=== PATIENT | male | born 1960 | race Caucasian/White ===

== ENCOUNTER → 2016-02-26 | Outpatient (CLI) | payer BC ==
[~2016-02-26] MED LIST: /PANT40TA OR; /SUCR1TA OR; ATEN50TA2 PO; CEFT250T OR; CELE20TA PO; CETI10TA OR; FERR325T OR; KLOR10TA OR; LASI80TA PO; NORV5TAB PO; POTA20TA PO; PRADAXA PO; TRAZ150T OR; VICO5TAB PO; ZANA2CAP OR
[2016-02-26 17:02] LABS: INR 2.33
== END ==
LOC: M WUC 14:33
PROVIDERS: ATTEND Nurse Practitioner Family
DX: I48.91 Unspecified atrial fibrillation (principal)

== ENCOUNTER → 2016-04-05 | Outpatient (CLI) | payer BC ==
[2016-04-05 16:50] LABS: INR 1.97
== END ==
LOC: M WUC 14:31
PROVIDERS: ATTEND Nurse Practitioner Family
DX: I48.91 Unspecified atrial fibrillation (principal)

== ENCOUNTER → 2016-04-16 | Outpatient (CLI) | payer BC ==
[2016-04-16 18:27] LABS: INR 2.66
== END ==
LOC: M WUC 14:25
PROVIDERS: ATTEND Nurse Practitioner Family
DX: I48.91 Unspecified atrial fibrillation (principal)

== ENCOUNTER → 2016-05-04 | Outpatient (CLI) | payer BC ==
[2016-05-04 18:06] LABS: INR 2.65
[2016-05-04 18:45] LABS: ALBUMIN 4.1 GM/DL (3.2-5.2); ALBUMIN/GLOBULIN RATIO 1.41 (1.00-1.93); ALKALINE PHOSPHATASE 98 U/L (45-117); ALT/SGPT 74 U/L (12-78); ANION GAP 9 MEQ/L (8-16); AST/SGOT 41 U/L (15-37); BILIRUBIN,TOTAL 0.5 MG/DL (0.2-1.0); BLOOD UREA NITROGEN 26 MG/DL (7-18); CALCIUM LEVEL 8.4 MG/DL (8.5-10.1); CARBON DIOXIDE LEVEL 28 MEQ/L (21-32); CHLORIDE LEVEL 103 MEQ/L (98-107); CHOLESTEROL LEVEL 167 MG/DL (<200); CREATININE FOR GFR 0.84 MG/DL (0.70-1.30); GLOMERULAR FILTRATION RATE > 60.0 (>56); GLUCOSE, FASTING 97 MG/DL (70-105); POTASSIUM SERUM 4.4 MEQ/L (3.5-5.1); SODIUM LEVEL 140 MEQ/L (136-145); TRIGLYCERIDES LEVEL 62 MG/DL (<150)
[2016-05-04 18:56] LABS: MEAN CORPUSCULAR HEMOGLOBIN 32.9 pg (27.0-33.0); MEAN CORPUSCULAR HGB CONC 33.3 g/dl (32.0-36.5); RED CELL DISTRIBUTION WIDTH 13.3 % (11.5-14.5); WHITE BLOOD COUNT 8.5 K/mm3 (4.0-10.0)
== END ==
LOC: M WUC 14:27
PROVIDERS: ATTEND Nurse Practitioner Family
DX: Z12.5 Encounter for screening for malignant neoplasm of prostate (principal); I48.91 Unspecified atrial fibrillation; E78.4 Other hyperlipidemia; I10 Essential (primary) hypertension; E11.9 Type 2 diabetes mellitus without complications

== ENCOUNTER → 2016-07-13 | Outpatient (CLI) | payer BC ==
[2016-07-13 17:15] LABS: INR 2.9
== END ==
LOC: M WUC 14:30
PROVIDERS: ATTEND Nurse Practitioner Family
DX: I48.91 Unspecified atrial fibrillation (principal)

== ENCOUNTER → 2016-08-19 | Outpatient (CLI) | payer BC ==
[2016-08-19 19:38] LABS: INR 2.14
== END ==
LOC: M WUC 15:18
PROVIDERS: ATTEND Nurse Practitioner Family
DX: Z79.01 Long term (current) use of anticoagulants (principal); I48.91 Unspecified atrial fibrillation

== ENCOUNTER → 2016-09-10 | Outpatient (CLI) | payer BC ==
[2016-09-10 17:55] LABS: INR 2.33
== END ==
LOC: M WUC 14:11
PROVIDERS: ATTEND Nurse Practitioner Family
DX: I48.91 Unspecified atrial fibrillation (principal)

== ENCOUNTER → 2016-10-21 | Outpatient (CLI) | payer BC ==
[2016-10-21 19:35] LABS: INR 2.07
== END ==
LOC: M WUC 15:34
PROVIDERS: ATTEND Nurse Practitioner Family
DX: I48.91 Unspecified atrial fibrillation (principal)

== ENCOUNTER → 2016-12-23 | Outpatient (CLI) | payer BC ==
[2016-12-23 17:33] LABS: INR 2.17
== END ==
LOC: M WUC 13:37
PROVIDERS: ATTEND Nurse Practitioner Family
DX: I48.91 Unspecified atrial fibrillation (principal)

== ENCOUNTER → 2017-01-27 | Outpatient (CLI) | payer BC ==
[2017-01-27 16:41] LABS: INR 2.07
== END ==
LOC: M WUC 14:24
PROVIDERS: ATTEND Nurse Practitioner Family
DX: I48.91 Unspecified atrial fibrillation (principal)

== ENCOUNTER → 2017-03-10 | Outpatient (CLI) | payer BC ==
[2017-03-10 19:01] LABS: HEMATOCRIT 47.2 % (42.0-52.0); HEMOGLOBIN 15.8 g/dl (14.0-18.0); MEAN CORPUSCULAR HEMOGLOBIN 31.8 pg (27.0-33.0); MEAN CORPUSCULAR HGB CONC 33.5 g/dl (32.0-36.5); PLATELET COUNT, AUTOMATED 315 10^3/uL (150-450); RED BLOOD COUNT 4.97 10^6/uL (4.30-6.10); RED CELL DISTRIBUTION WIDTH 13.5 % (11.5-14.5); WHITE BLOOD COUNT 9.9 10^3/uL (4.0-10.0)
[2017-03-10 19:03] LABS: APPEARANCE, URINE CLEAR (CLEAR); BACTERIA, URINE AUTO NEGATIVE (NEGATIVE); BILIRUBIN, URINE AUTO NEGATIVE (NEGATIVE); BLOOD, URINE BLOOD NEGATIVE (NEGATIVE); COLOR, URINE YELLOW (YELLOW); GLUCOSE, URINE (UA) AUTO NEGATIVE (NEGATIVE); KETONE, URINE AUTO TRACE mg/dL (NEGATIVE); LEUKOCYTE ESTERASE, URINE AUTO NEGATIVE (NEGATIVE); NITRITE, URINE AUTO NEGATIVE (NEGATIVE); PROTEIN, URINE AUTO NEGATIVE (NEGATIVE); RBC, URINE AUTO 1 /HPF (0-3); SQUAMOUS EPITHELIAL CELL UR AU 0 /HPF (0-6); UROBILINOGEN, URINE AUTO 0.2 mg/dL (0.0-2.0); WBC, URINE AUTO 0 /HPF (0-3)
[2017-03-10 19:11] LABS: INR 1.86
[2017-03-10 20:00] LABS: MALB URINE SIEMENS 8.1 MG/L; MAU/CREAT RATIO 4.4 MCG/MG (0.0-30.0)
[2017-03-10 20:20] LABS: ALBUMIN 4.1 GM/DL (3.2-5.2); ALBUMIN/GLOBULIN RATIO 1.32 (1.00-1.93); ALKALINE PHOSPHATASE 75 U/L (45-117); ALT/SGPT 61 U/L (12-78); ANION GAP 7 MEQ/L (8-16); AST/SGOT 28 U/L (7-37); BILIRUBIN,TOTAL 0.5 MG/DL (0.2-1.0); BLOOD UREA NITROGEN 29 MG/DL (7-18); CARBON DIOXIDE LEVEL 27 MEQ/L (21-32); CHLORIDE LEVEL 104 MEQ/L (98-107); CHOLESTEROL LEVEL 193 MG/DL (<200); CHOLESTEROL RISK RATIO 3.216 (<5); CREATININE FOR GFR 0.97 MG/DL (0.70-1.30); GLOMERULAR FILTRATION RATE > 60.0 (>56); GLUCOSE, FASTING 93 MG/DL (70-100); HDL CHOLESTEROL 60 MG/DL (>40); LDL CHOLESTEROL 118.2 MG/DL (<100); NON-HDL-C 133 MG/DL; POTASSIUM SERUM 4.3 MEQ/L (3.5-5.1); PROSTATIC SPECIFIC AG MONITOR 1.57 NG/ML (< 4.0); SODIUM LEVEL 138 MEQ/L (136-145); TOTAL PROTEIN 7.2 GM/DL (6.4-8.2); TRIGLYCERIDES LEVEL 74 MG/DL (<150)
== END ==
LOC: M WUC 14:56
DX: Z00.00 Encounter for general adult medical examination without abnormal findings (principal); Z12.5 Encounter for screening for malignant neoplasm of prostate; E78.2 Mixed hyperlipidemia; E11.9 Type 2 diabetes mellitus without complications; I10 Essential (primary) hypertension; I48.91 Unspecified atrial fibrillation
CPT/HCPCS: 80053

== ENCOUNTER → 2017-03-17 | Outpatient (CLI) | payer BC ==
[2017-03-17 19:08] LABS: INR 2.17
== END ==
LOC: M WUC 14:00
DX: I48.91 Unspecified atrial fibrillation (principal)
CPT/HCPCS: 85610

== ENCOUNTER → 2017-04-28 | Outpatient (CLI) | payer BC ==
[2017-04-28 17:01] LABS: INR 1.96
== END ==
LOC: M WUC 14:21
DX: I48.91 Unspecified atrial fibrillation (principal)
CPT/HCPCS: 85610

== ENCOUNTER → 2017-05-05 | Outpatient (CLI) | payer BC ==
[2017-05-05 17:01] LABS: INR 2.18
== END ==
LOC: M WUC 14:21
DX: I48.91 Unspecified atrial fibrillation (principal)
CPT/HCPCS: 85610

== ENCOUNTER → 2017-06-14 | Outpatient (CLI) | payer BC ==
[2017-06-14 16:43] LABS: INR 2.09; PROTHROMBIN TIME 24.2 SECONDS (12.4-14.5)
== END ==
LOC: M WUC 14:50
DX: I48.91 Unspecified atrial fibrillation (principal)
CPT/HCPCS: 85610

== ENCOUNTER → 2017-07-21 | Outpatient (CLI) | payer BC ==
[2017-07-21 16:53] LABS: INR 1.84; PROTHROMBIN TIME 21.8 SECONDS (12.4-14.5)
== END ==
LOC: M WUC 14:57
DX: Z79.01 Long term (current) use of anticoagulants (principal); I48.91 Unspecified atrial fibrillation
CPT/HCPCS: 85610

== ENCOUNTER → 2017-08-02 | Outpatient (CLI) | payer BC ==
[2017-08-02 18:35] LABS: INR 2.22; PROTHROMBIN TIME 25.4 SECONDS (12.4-14.5)
== END ==
LOC: M WUC 14:38
DX: I48.91 Unspecified atrial fibrillation (principal)
CPT/HCPCS: 85610

== ENCOUNTER → 2017-08-09 | Outpatient (CLI) | payer BC ==
[2017-08-09 16:51] LABS: INR 2.38; PROTHROMBIN TIME 26.5 SECONDS (12.1-14.4)
== END ==
LOC: M WUC 14:57
DX: I48.91 Unspecified atrial fibrillation (principal); Z51.81 Encounter for therapeutic drug level monitoring; Z79.01 Long term (current) use of anticoagulants
CPT/HCPCS: 85610

== ENCOUNTER → 2017-09-16 | Outpatient (CLI) | payer BC ==
[2017-09-16 16:49] LABS: INR 1.87; PROTHROMBIN TIME 21.9 SECONDS (12.1-14.4)
== END ==
LOC: M WUC 14:25
DX: I48.91 Unspecified atrial fibrillation (principal)
CPT/HCPCS: 85610

== ENCOUNTER → 2017-10-24 | Outpatient (CLI) | payer BC ==
[2017-10-24 17:24] LABS: INR 1.88; PROTHROMBIN TIME 21.9 SECONDS (12.1-14.4)
== END ==
LOC: M WUC 14:26
DX: I48.91 Unspecified atrial fibrillation (principal)
CPT/HCPCS: 85610

== ENCOUNTER → 2017-10-31 | Outpatient (CLI) | payer BC ==
[2017-10-31 18:47] LABS: INR 1.88; PROTHROMBIN TIME 21.9 SECONDS (12.1-14.4)
== END ==
LOC: M WUC 14:42
DX: I48.91 Unspecified atrial fibrillation (principal)
CPT/HCPCS: 85610

== ENCOUNTER → 2017-11-07 | Outpatient (CLI) | payer BC ==
[2017-11-07 17:39] LABS: INR 1.97; PROTHROMBIN TIME 22.8 SECONDS (12.1-14.4)
== END ==
LOC: M WUC 14:04
DX: I48.91 Unspecified atrial fibrillation (principal)

== ENCOUNTER → 2017-11-14 | Outpatient (CLI) | payer BC ==
[2017-11-14 18:47] LABS: INR 2.13; PROTHROMBIN TIME 24.2 SECONDS (12.1-14.4)
== END ==
LOC: M WUC 13:53
DX: I48.91 Unspecified atrial fibrillation (principal)
CPT/HCPCS: 85610

== ENCOUNTER → 2017-11-22 | Outpatient (CLI) | payer BC ==
[2017-11-22 15:20] LABS: INR 2.71; PROTHROMBIN TIME 29.3 SECONDS (12.1-14.4)
== END ==
LOC: M WUC 14:36
DX: I48.91 Unspecified atrial fibrillation (principal)
CPT/HCPCS: 85610

== ENCOUNTER → 2018-01-03 | Outpatient (CLI) | payer BC ==
[2018-01-03 17:20] LABS: INR 3.18; PROTHROMBIN TIME 33.3 SECONDS (12.1-14.4)
== END ==
LOC: M WUC 15:17
DX: I48.91 Unspecified atrial fibrillation (principal)
CPT/HCPCS: 85610

== ENCOUNTER → 2018-02-01 | Outpatient (CLI) | payer BC ==
[2018-02-01 14:32] LABS: HEMATOCRIT 45.1 % (42.0-52.0); HEMOGLOBIN 15.2 g/dl (13.5-17.5); MEAN CORPUSCULAR HEMOGLOBIN 32.5 pg (27.0-33.0); MEAN CORPUSCULAR HGB CONC 33.7 g/dl (32.0-36.5); MEAN CORPUSCULAR VOLUME 96.4 fl (80.0-96.0); PLATELET COUNT, AUTOMATED 236 10^3/uL (150-450); RED BLOOD COUNT 4.68 10^6/uL (4.30-6.10); WHITE BLOOD COUNT 9.2 10^3/uL (4.0-10.0)
[2018-02-01 14:43] LABS: ALBUMIN 3.7 GM/DL (3.2-5.2); ALT/SGPT 53 U/L (12-78); BILIRUBIN,TOTAL 0.3 MG/DL (0.2-1.0); BLOOD UREA NITROGEN 25 MG/DL (7-18); CALCIUM LEVEL 8.1 MG/DL (8.5-10.1); CARBON DIOXIDE LEVEL 30 MEQ/L (21-32); CHLORIDE LEVEL 105 MEQ/L (98-107); CHOLESTEROL LEVEL 172 MG/DL (<200); CHOLESTEROL RISK RATIO 3.017 (<5); CREATININE FOR GFR 0.94 MG/DL (0.70-1.30); GLOMERULAR FILTRATION RATE > 60.0 (>56); GLUCOSE, FASTING 102 MG/DL (70-100); HDL CHOLESTEROL 57 MG/DL (>40); LDL CHOLESTEROL 97 MG/DL (<100); NON-HDL-C 115 MG/DL; POTASSIUM SERUM 4.7 MEQ/L (3.5-5.1); PROSTATIC SPECIFIC AG MONITOR 1.64 NG/ML (< 4.00); SODIUM LEVEL 140 MEQ/L (136-145); TOTAL PROTEIN 6.6 GM/DL (6.4-8.2); TRIGLYCERIDES LEVEL 89 MG/DL (<150)
[2018-02-01 14:47] LABS: INR 2.37; PROTHROMBIN TIME 26.4 SECONDS (12.1-14.4)
== END ==
LOC: M WUC 11:15
PROVIDERS: ATTEND Nurse Practitioner Family
DX: I48.91 Unspecified atrial fibrillation (principal); E78.2 Mixed hyperlipidemia; Z12.5 Encounter for screening for malignant neoplasm of prostate; I10 Essential (primary) hypertension

== ENCOUNTER → 2018-05-05 | Outpatient (CLI) | payer BC ==
[2018-05-05 19:54] LABS: INR 3.13; PROTHROMBIN TIME 32.9 SECONDS (12.1-14.4)
== END ==
LOC: M WUC 15:58
PROVIDERS: ATTEND Nurse Practitioner Family
DX: I48.91 Unspecified atrial fibrillation (principal)

== ENCOUNTER → 2018-05-15 | Outpatient (CLI) | payer BC ==
[~2018-05-15] MED LIST changes: -/PANT40TA OR; -/SUCR1TA OR; +PROT1TAB2 OR; +SUCR1TAB56 OR
[2018-05-15 17:49] LABS: INR 2.64; PROTHROMBIN TIME 28.7 SECONDS (12.1-14.4)
== END ==
LOC: M WUC 14:10
PROVIDERS: ATTEND Nurse Practitioner Family
DX: I48.91 Unspecified atrial fibrillation (principal)

== ENCOUNTER 2018-05-24 14:22 | Outpatient (RCR) | payer BC | END 2018-06-06 | LOC: M CR 14:22 | PROVIDERS: ATTEND Nurse Practitioner Family | DX: I48.91 Unspecified atrial fibrillation (principal) ==

== ENCOUNTER → 2018-07-07 | Outpatient (CLI) | payer BC ==
[2018-07-07 17:05] LABS: INR 3.7; PROTHROMBIN TIME 37.6 SECONDS (12.1-14.4)
== END ==
LOC: M WUC 14:16
PROVIDERS: ATTEND Nurse Practitioner Family
DX: I48.91 Unspecified atrial fibrillation (principal)

== ENCOUNTER → 2018-07-11 | Outpatient (CLI) | payer BC ==
[2018-07-11 18:16] LABS: INR 4.18; PROTHROMBIN TIME 41.4 SECONDS (12.1-14.4)
== END ==
LOC: M WUC 14:06
PROVIDERS: ATTEND Nurse Practitioner Family
DX: I48.91 Unspecified atrial fibrillation (principal)

== ENCOUNTER → 2018-07-14 | Outpatient (CLI) | payer BC ==
[2018-07-14 17:32] LABS: INR 1.67
== END ==
LOC: M WUC 14:00
PROVIDERS: ATTEND Nurse Practitioner Family
DX: I48.91 Unspecified atrial fibrillation (principal)

== ENCOUNTER → 2018-07-21 | Outpatient (CLI) | payer BC ==
[2018-07-21 17:28] LABS: INR 3.15; PROTHROMBIN TIME 33.1 SECONDS (12.1-14.4)
== END ==
LOC: M WUC 14:07
PROVIDERS: ATTEND Nurse Practitioner Family
DX: I48.91 Unspecified atrial fibrillation (principal)

== ENCOUNTER → 2018-07-31 | Outpatient (CLI) | payer BC ==
[2018-07-31 18:09] LABS: PROTHROMBIN TIME 60.9 SECONDS (11.8-14.0)
[2018-07-31 18:12] LABS: INR 6.96
== END ==
LOC: M WUC 14:31
PROVIDERS: ATTEND Nurse Practitioner Family
DX: I48.91 Unspecified atrial fibrillation (principal)

== ENCOUNTER → 2018-08-02 | Outpatient (CLI) | payer BC ==
[2018-08-02 17:18] LABS: INR 2.2; PROTHROMBIN TIME 24.2 SECONDS (11.8-14.0)
== END ==
LOC: M WUC 14:03
PROVIDERS: ATTEND Nurse Practitioner Family
DX: I48.91 Unspecified atrial fibrillation (principal)

== ENCOUNTER → 2018-08-09 | Outpatient (CLI) | payer BC ==
[2018-08-09 17:24] LABS: INR 2.13; PROTHROMBIN TIME 23.6 SECONDS (11.8-14.0)
== END ==
LOC: M WUC 13:56
PROVIDERS: ATTEND Nurse Practitioner Family
DX: I48.91 Unspecified atrial fibrillation (principal)

== ENCOUNTER → 2018-09-04 | Outpatient (CLI) | payer BC ==
[2018-09-04 15:56] LABS: INR 2.59; PROTHROMBIN TIME 27.6 SECONDS (11.8-14.0)
== END ==
LOC: M WUC 14:06
PROVIDERS: ATTEND Nurse Practitioner Family
DX: I48.91 Unspecified atrial fibrillation (principal)

== ENCOUNTER 2018-10-04 13:50 | Outpatient (RCR) | payer BC | END 2018-10-07 | LOC: M CR 13:50 | PROVIDERS: ATTEND Nurse Practitioner Family | DX: I48.91 Unspecified atrial fibrillation (principal) ==

== ENCOUNTER → 2018-10-31 | Outpatient (CLI) | payer BC, MEDICARE ==
[2018-10-31 16:58] LABS: HEMATOCRIT 43.1 % (42.0-52.0); HEMOGLOBIN 14.5 g/dl (13.5-17.5); MEAN CORPUSCULAR HEMOGLOBIN 32.4 pg (27.0-33.0); MEAN CORPUSCULAR HGB CONC 33.6 g/dl (32.0-36.5); MEAN CORPUSCULAR VOLUME 96.4 fl (80.0-96.0); PLATELET COUNT, AUTOMATED 220 10^3/uL (150-450); RED BLOOD COUNT 4.47 10^6/uL (4.30-6.10); WHITE BLOOD COUNT 8.1 10^3/uL (4.0-10.0)
[2018-10-31 17:13] LABS: HEMOGLOBIN A1c 5.4 %
[2018-10-31 17:20] LABS: INR 2.39; PROTHROMBIN TIME 25.9 SECONDS (11.8-14.0)
[2018-10-31 17:38] LABS: ALT/SGPT 45 U/L (12-78); BILIRUBIN,TOTAL 0.6 MG/DL (0.2-1.0); BLOOD UREA NITROGEN 19 MG/DL (7-18); CALCIUM LEVEL 8.6 MG/DL (8.5-10.1); CARBON DIOXIDE LEVEL 29 MEQ/L (21-32); CHLORIDE LEVEL 103 MEQ/L (98-107); GLOMERULAR FILTRATION RATE > 60.0 (>56); GLUCOSE, FASTING 89 MG/DL (70-100); POTASSIUM SERUM 4.2 MEQ/L (3.5-5.1); SODIUM LEVEL 139 MEQ/L (136-145); TESTOSTERONE 307 NG/DL (241-827)
== END ==
LOC: M WUC 13:52
PROVIDERS: ATTEND Nurse Practitioner Family
DX: I48.91 Unspecified atrial fibrillation (principal); I10 Essential (primary) hypertension; E78.5 Hyperlipidemia, unspecified

== ENCOUNTER → 2019-01-24 | Outpatient (CLI) | payer BC, MEDICARE ==
[2019-01-24 16:59] LABS: INR 3.04; PROTHROMBIN TIME 31.4 SECONDS (11.8-14.0)
== END ==
LOC: M WUC 14:47
PROVIDERS: ATTEND Nurse Practitioner Family
DX: I48.91 Unspecified atrial fibrillation (principal)

== ENCOUNTER → 2019-02-28 | Outpatient (CLI) | payer BC ==
[2019-02-28 16:41] LABS: INR 3.47; PROTHROMBIN TIME 34.9 SECONDS (11.8-14.0)
== END ==
LOC: M WUC 14:49
PROVIDERS: ATTEND Nurse Practitioner Family
DX: I48.91 Unspecified atrial fibrillation (principal)

== ENCOUNTER → 2019-03-29 | Outpatient (CLI) | payer BC ==
[2019-03-29 16:38] LABS: INR 2.99
== END ==
LOC: M WUC 14:02
PROVIDERS: ATTEND Nurse Practitioner Family
DX: I48.91 Unspecified atrial fibrillation (principal)

== ENCOUNTER → 2019-05-03 | Outpatient (CLI) | payer BC ==
[2019-05-03 16:48] LABS: INR 2.77; PROTHROMBIN TIME 29.2 SECONDS (11.8-14.0)
== END ==
LOC: M WUC 15:08
PROVIDERS: ATTEND Nurse Practitioner Family
DX: I48.91 Unspecified atrial fibrillation (principal)

== ENCOUNTER → 2019-06-06 | Outpatient (CLI) | payer BC ==
[2019-06-06 16:53] LABS: INR 2.92; PROTHROMBIN TIME 30.4 SECONDS (11.8-14.0)
== END ==
LOC: M WUC 14:28
PROVIDERS: ATTEND Nurse Practitioner Family
DX: I48.91 Unspecified atrial fibrillation (principal)

== ENCOUNTER → 2019-07-10 | Outpatient (CLI) | payer BC ==
[2019-07-10 17:30] LABS: INR 3.14; PROTHROMBIN TIME 32.2 SECONDS (11.8-14.0)
== END ==
LOC: M WUC 14:11
PROVIDERS: ATTEND Nurse Practitioner Family
DX: I48.91 Unspecified atrial fibrillation (principal)

== ENCOUNTER → 2019-08-16 | Outpatient (CLI) | payer BC ==
[2019-08-16 16:11] LABS: INR 2.24; PROTHROMBIN TIME 24.6 SECONDS (11.8-14.0)
== END ==
LOC: M WUC 14:09
PROVIDERS: ATTEND Nurse Practitioner Family
DX: I48.91 Unspecified atrial fibrillation (principal)

== ENCOUNTER → 2019-09-20 | Outpatient (REF) ==
[2019-10-28 00:26] LABS: INR 3.4; PROTHROMBIN TIME 35.1 SECONDS (12.5-14.3)
== END ==
LOC: M LAB LCGH 14:21
PROVIDERS: ATTEND Nurse Practitioner Family
DX: I48.91 Unspecified atrial fibrillation (principal)

== ENCOUNTER → 2019-10-04 | Outpatient (CLI) | payer BC ==
[2019-10-04 18:06] LABS: INR 2.4; PROTHROMBIN TIME 26.7 SECONDS (11.8-14.0)
== END ==
LOC: M WUC 14:29
PROVIDERS: ATTEND Nurse Practitioner Family
DX: I48.91 Unspecified atrial fibrillation (principal)

== ENCOUNTER → 2019-11-05 | Outpatient (CLI) | payer BC ==
[2019-11-05 17:10] LABS: INR 1.89; PROTHROMBIN TIME 22.1 SECONDS (12.5-14.3)
[2019-11-05 17:15] LABS: BASO % 0.4 % (0.0-1.0); EOS # 0.1 10^3/uL (0.0-0.5); EOS % 1.2 % (0.0-3.0); HEMATOCRIT 43.1 % (42.0-52.0); HEMOGLOBIN 14.4 g/dl (13.5-17.5); LYMPH # 1.2 10^3/uL (1.5-5.0); LYMPH % 14.5 % (24.0-44.0); MEAN CORPUSCULAR HEMOGLOBIN 32.2 pg (27.0-33.0); MEAN CORPUSCULAR HGB CONC 33.4 g/dl (32.0-36.5); MEAN CORPUSCULAR VOLUME 96.4 fl (80.0-96.0); MONO # 0.7 10^3/uL (0.0-0.8); MONO % 8.9 % (0.0-5.0); NEUTROPHILS % 74.5 % (36.0-66.0); PLATELET COUNT, AUTOMATED 236 10^3/uL (150-450); RED BLOOD COUNT 4.47 10^6/uL (4.30-6.10); WHITE BLOOD COUNT 8.1 10^3/uL (4.0-10.0)
[2019-11-05 17:23] LABS: ALBUMIN 3.9 GM/DL (3.2-5.2); ALT/SGPT 46 U/L (12-78); BILIRUBIN,TOTAL 0.6 MG/DL (0.2-1.0); BLOOD UREA NITROGEN 26 MG/DL (7-18); CALCIUM LEVEL 8.5 MG/DL (8.8-10.2); CARBON DIOXIDE LEVEL 27 MEQ/L (21-32); CHLORIDE LEVEL 106 MEQ/L (98-107); CHOLESTEROL LEVEL 183 MG/DL (<200); CHOLESTEROL RISK RATIO 3.588 (<5); CREATININE FOR GFR 0.96 MG/DL (0.70-1.30); GLOMERULAR FILTRATION RATE > 60.0 (>49); GLUCOSE, FASTING 99 MG/DL (70-100); HDL CHOLESTEROL 51 MG/DL (>40); LDL CHOLESTEROL 112 MG/DL (<100); NON-HDL-C 132 MG/DL; POTASSIUM SERUM 4.5 MEQ/L (3.5-5.1); SODIUM LEVEL 136 MEQ/L (136-145); TRIGLYCERIDES LEVEL 98 MG/DL (<150)
== END ==
LOC: M WUC 14:35
PROVIDERS: ATTEND Nurse Practitioner Family
DX: Z09 Encounter for follow-up examination after completed treatment for conditions other than malignant neoplasm (principal); I48.91 Unspecified atrial fibrillation; I10 Essential (primary) hypertension; Z83.438 Family history of other disorder of lipoprotein metabolism and other lipidemia

== ENCOUNTER → 2019-12-03 | Outpatient (CLI) | payer BC ==
[2019-12-03 16:37] LABS: INR 2.04; PROTHROMBIN TIME 23.5 SECONDS (12.5-14.3)
== END ==
LOC: M WUC 13:49
PROVIDERS: ATTEND Nurse Practitioner Family
DX: I48.91 Unspecified atrial fibrillation (principal)

== ENCOUNTER → 2020-01-09 | Outpatient (CLI) | payer BC ==
[2020-01-09 16:38] LABS: INR 2.28; PROTHROMBIN TIME 25.6 SECONDS (12.5-14.3)
== END ==
LOC: M WUC 13:59
PROVIDERS: ATTEND Nurse Practitioner Family
DX: I48.91 Unspecified atrial fibrillation (principal)

== ENCOUNTER → 2020-02-13 | Outpatient (CLI) | payer BC ==
[2020-02-13 16:09] LABS: INR 2.58; PROTHROMBIN TIME 28.3 SECONDS (12.5-14.3)
== END ==
LOC: M WUC 14:40
PROVIDERS: ATTEND Nurse Practitioner Family
DX: I48.91 Unspecified atrial fibrillation (principal)

== ENCOUNTER → 2020-03-26 | Outpatient (CLI) | payer BC ==
[2020-03-26 16:40] LABS: INR 2.15; PROTHROMBIN TIME 24.5 SECONDS (12.5-14.3)
== END ==
LOC: M WUC 14:04
PROVIDERS: ATTEND Nurse Practitioner Family
DX: I48.91 Unspecified atrial fibrillation (principal)

== ENCOUNTER → 2020-04-21 | Outpatient (CLI) | payer BC ==
[2020-04-21 16:41] LABS: INR 1.99
== END ==
LOC: M WUC 13:52
PROVIDERS: ATTEND Nurse Practitioner Family
DX: I48.91 Unspecified atrial fibrillation (principal)

== ENCOUNTER → 2020-05-21 | Outpatient (CLI) | payer BC ==
[2020-05-21 17:17] LABS: INR 2.27; PROTHROMBIN TIME 25.6 SECONDS (12.5-14.3)
== END ==
LOC: M WUC 13:58
PROVIDERS: ATTEND Nurse Practitioner Family
DX: I48.91 Unspecified atrial fibrillation (principal)

== ENCOUNTER → 2020-06-24 | Outpatient (CLI) | payer BC ==
[2020-06-24 16:09] LABS: INR 1.87; PROTHROMBIN TIME 21.9 SECONDS (12.5-14.3)
== END ==
LOC: M WUC 14:14
PROVIDERS: ATTEND Nurse Practitioner Family
DX: I48.91 Unspecified atrial fibrillation (principal)

== ENCOUNTER → 2020-07-18 | Outpatient (CLI) | payer BC ==
[2020-07-18 16:17] LABS: INR 2.29; PROTHROMBIN TIME 25.7 SECONDS (12.5-14.3)
== END ==
LOC: M WUC 14:00
PROVIDERS: ATTEND Nurse Practitioner Family
DX: I48.91 Unspecified atrial fibrillation (principal)

== ENCOUNTER → 2020-12-24 | Outpatient (CLI) | payer MEDICARE, OTHER ==
[2020-12-24 16:40] LABS: INR 2.76; PROTHROMBIN TIME 29.6 SECONDS (12.7-14.5)
== END ==
LOC: M WUC 14:33
PROVIDERS: ATTEND Nurse Practitioner Family
DX: I48.91 Unspecified atrial fibrillation (principal)

== ENCOUNTER → 2021-01-23 | Outpatient (REF) | payer OTHER ==
[2021-01-23 16:40] LABS: INR 2.87; PROTHROMBIN TIME 30.4 SECONDS (12.7-14.5)
== END ==
LOC: M LABWUC 15:29
PROVIDERS: ATTEND Nurse Practitioner Family
DX: I48.91 Unspecified atrial fibrillation (principal)

== ENCOUNTER → 2021-02-17 | Outpatient (CLI) | payer OTHER ==
[2021-02-18 00:12] LABS: ALBUMIN 4.1 GM/DL (3.2-5.2); ALT/SGPT 60 U/L (12-78); BLOOD UREA NITROGEN 22 MG/DL (7-18); C REACTIVE PROTEIN QUANTITATIV 0.68 MG/DL (0.00-0.30); CREATININE FOR GFR 1.17 MG/DL (0.70-1.30); GLOMERULAR FILTRATION RATE > 60.0 (>49)
[2021-02-18 00:28] LABS: BASO % 0.4 % (0.0-1.0); EOS # 0.2 10^3/uL (0.0-0.5); EOS % 1.7 % (0.0-3.0); HEMATOCRIT 44.5 % (42.0-52.0); HEMOGLOBIN 14.4 g/dl (13.5-17.5); LYMPH % 10.4 % (24.0-44.0); MEAN CORPUSCULAR HEMOGLOBIN 32.3 pg (27.0-33.0); MEAN CORPUSCULAR HGB CONC 32.4 g/dl (32.0-36.5); MEAN CORPUSCULAR VOLUME 99.8 fl (80.0-96.0); MONO # 0.7 10^3/uL (0.0-0.8); MONO % 7.4 % (2.0-8.0); NEUTROPHILS % 79.4 % (36.0-66.0); PLATELET COUNT, AUTOMATED 327 10^3/uL (150-450); RED BLOOD COUNT 4.46 10^6/uL (4.30-6.10)
[2021-02-18 01:09] LABS: ERYTHROCYTE SEDIMENTATION RATE 12 mm/hr (0-20)
== END ==
LOC: M WUC 15:31
PROVIDERS: ATTEND Nurse Practitioner
DX: M06.09 Rheumatoid arthritis without rheumatoid factor, multiple sites (principal); Z79.899 Other long term (current) drug therapy

== ENCOUNTER → 2021-03-17 | Outpatient (CLI) | payer OTHER ==
[2021-03-17 16:27] LABS: INR 2.56; PROTHROMBIN TIME 27.9 SECONDS (12.7-14.5)
== END ==
LOC: M WUC 14:34
PROVIDERS: ATTEND Nurse Practitioner Family
DX: I48.91 Unspecified atrial fibrillation (principal)

== ENCOUNTER → 2021-04-17 | Outpatient (CLI) | payer OTHER ==
[2021-04-17 16:13] LABS: INR 2.61; PROTHROMBIN TIME 28.3 SECONDS (12.7-14.5)
== END ==
LOC: M WUC 14:03
PROVIDERS: ATTEND Nurse Practitioner Family
DX: I48.91 Unspecified atrial fibrillation (principal)

== ENCOUNTER → 2021-05-28 | Outpatient (CLI) | payer OTHER ==
[2021-05-28 16:11] LABS: INR 2.24; PROTHROMBIN TIME 25.2 SECONDS (12.7-14.5)
== END ==
LOC: M WUC 14:24
PROVIDERS: ATTEND Nurse Practitioner Family
DX: I48.20 Chronic atrial fibrillation, unspecified (principal)

== ENCOUNTER → 2021-06-16 | Outpatient (CLI) | payer OTHER ==
[2021-06-16 16:10] LABS: INR 2.99; PROTHROMBIN TIME 31.4 SECONDS (12.7-14.5)
== END ==
LOC: M WUC 14:28
PROVIDERS: ATTEND Nurse Practitioner Family
DX: I48.91 Unspecified atrial fibrillation (principal)

== ENCOUNTER → 2021-07-20 | Outpatient (CLI) | payer OTHER ==
[2021-07-20 16:39] LABS: INR 2.55; PROTHROMBIN TIME 27.8 SECONDS (12.7-14.5)
== END ==
LOC: M WUC 13:59
PROVIDERS: ATTEND Nurse Practitioner Family
DX: I48.20 Chronic atrial fibrillation, unspecified (principal)

== ENCOUNTER → 2021-08-24 | Outpatient (REF) | payer OTHER ==
[2021-08-24 16:23] LABS: INR 1.83; PROTHROMBIN TIME 21.5 SECONDS (12.7-14.5)
== END ==
LOC: M LAB REF 15:36
PROVIDERS: ATTEND Nurse Practitioner Family
DX: I48.91 Unspecified atrial fibrillation (principal)

== ENCOUNTER → 2021-09-23 | Outpatient (CLI) | payer OTHER ==
[2021-09-23 18:53] LABS: INR 2.81; PROTHROMBIN TIME 29.9 SECONDS (12.7-14.5)
== END ==
LOC: M WUC 14:22
PROVIDERS: ATTEND Nurse Practitioner Family
DX: I48.20 Chronic atrial fibrillation, unspecified (principal)

== ENCOUNTER → 2021-10-20 | Outpatient (CLI) | payer OTHER ==
[2021-10-20 17:38] LABS: INR 2.61; PROTHROMBIN TIME 28.3 SECONDS (12.7-14.5)
== END ==
LOC: M WUC 14:32
PROVIDERS: ATTEND Nurse Practitioner Family
DX: I48.20 Chronic atrial fibrillation, unspecified (principal)

== ENCOUNTER → 2021-11-24 | Outpatient (REF) | payer OTHER | LOC: M WUC 17:05 | PROVIDERS: ATTEND Nurse Practitioner Family | DX: I48.20 Chronic atrial fibrillation, unspecified (principal) ==

== ENCOUNTER → 2021-12-29 | Outpatient (REF) | payer OTHER ==
[2021-12-29 17:13] LABS: INR 3.03; PROTHROMBIN TIME 31.8 SECONDS (12.5-14.5)
== END ==
LOC: M WUC 13:49
PROVIDERS: ATTEND Nurse Practitioner Family
DX: I48.20 Chronic atrial fibrillation, unspecified (principal)

== ENCOUNTER → 2022-01-20 | Outpatient (CLI) | payer OTHER ==
[2022-01-20 17:53] LABS: INR 3.75; PROTHROMBIN TIME 37.6 SECONDS (12.5-14.5)
== END ==
LOC: M WUC 13:59
PROVIDERS: ATTEND Nurse Practitioner Family
DX: I48.20 Chronic atrial fibrillation, unspecified (principal)

== ENCOUNTER → 2022-02-03 | Outpatient (CLI) | payer OTHER ==
[2022-02-03 16:38] LABS: ALBUMIN 3.3 G/DL (3.2-5.2); BILIRUBIN,DIRECT 0.2 MG/DL (<0.4); BILIRUBIN,TOTAL 0.6 MG/DL (0.3-1.2); TOTAL PROTEIN 5.8 G/DL (5.7-8.2)
== END ==
LOC: M WUC 13:58
PROVIDERS: ATTEND Internal Medicine Rheumatology
DX: R79.89 Other specified abnormal findings of blood chemistry (principal)

== ENCOUNTER → 2022-02-22 | Outpatient (CLI) | payer OTHER ==
[2022-02-22 17:24] LABS: INR 2.26; PROTHROMBIN TIME 25.3 SECONDS (12.5-14.5)
== END ==
LOC: M WUC 13:57
PROVIDERS: ATTEND Nurse Practitioner Family
DX: I48.20 Chronic atrial fibrillation, unspecified (principal)

== ENCOUNTER → 2022-03-26 | Outpatient (CLI) | payer OTHER ==
[2022-03-26 16:17] LABS: BASO % 0.6 % (0.0-1.0); EOS # 0.4 10^3/uL (0.0-0.5); EOS % 6.2 % (0.0-3.0); HEMATOCRIT 41.6 % (42.0-52.0); HEMOGLOBIN 13.8 g/dl (13.5-17.5); LYMPH # 0.8 10^3/uL (1.5-5.0); LYMPH % 11.2 % (24.0-44.0); MEAN CORPUSCULAR HEMOGLOBIN 32.5 pg (27.0-33.0); MEAN CORPUSCULAR HGB CONC 33.2 g/dl (32.0-36.5); MEAN CORPUSCULAR VOLUME 98.1 fl (80.0-96.0); MONO # 0.8 10^3/uL (0.0-0.8); NEUTROPHILS # 4.8 10^3/uL (1.5-8.5); NEUTROPHILS % 69.7 % (36.0-66.0); PLATELET COUNT, AUTOMATED 184 10^3/uL (150-450); RED BLOOD COUNT 4.24 10^6/uL (4.30-6.10); WHITE BLOOD COUNT 6.9 10^3/uL (4.0-10.0)
[2022-03-26 16:40] LABS: ALT/SGPT 39 U/L (7.0-40); AST/SGOT 29 U/L (<34); BLOOD UREA NITROGEN 23 MG/DL (9-23); CREATININE FOR GFR 0.97 MG/DL (0.70-1.30); GLOMERULAR FILTRATION RATE > 60.0 (>49)
[2022-03-26 16:52] LABS: ERYTHROCYTE SEDIMENTATION RATE 33 mm/hr (0-20)
== END ==
LOC: M WUC 14:04
PROVIDERS: ATTEND Nurse Practitioner
DX: M06.09 Rheumatoid arthritis without rheumatoid factor, multiple sites (principal); Z79.899 Other long term (current) drug therapy

== ENCOUNTER → 2022-03-26 | Outpatient (CLI) | payer OTHER ==
[2022-03-26 16:46] LABS: INR 2.13; PROTHROMBIN TIME 24.2 SECONDS (12.5-14.5)
== END ==
LOC: M WUC 14:06
PROVIDERS: ATTEND Nurse Practitioner Family
DX: I48.91 Unspecified atrial fibrillation (principal)

== ENCOUNTER → 2022-04-19 | Outpatient (CLI) | payer OTHER ==
[2022-04-19 18:23] LABS: INR 2.23; PROTHROMBIN TIME 25.1 SECONDS (12.5-14.5)
== END ==
LOC: M WUC 14:41
PROVIDERS: ATTEND Nurse Practitioner Family
DX: I48.91 Unspecified atrial fibrillation (principal)

== ENCOUNTER → 2022-05-20 | Outpatient (CLI) | payer OTHER ==
[2022-05-20 17:09] LABS: BASO % 0.5 % (0.0-1.0); EOS # 0.2 10^3/uL (0.0-0.5); EOS % 2.6 % (0.0-3.0); HEMATOCRIT 43.5 % (42.0-52.0); HEMOGLOBIN 14.1 g/dl (13.5-17.5); LYMPH # 0.8 10^3/uL (1.5-5.0); LYMPH % 9.5 % (24.0-44.0); MEAN CORPUSCULAR HEMOGLOBIN 30.5 pg (27.0-33.0); MEAN CORPUSCULAR HGB CONC 32.4 g/dl (32.0-36.5); MEAN CORPUSCULAR VOLUME 94.2 fl (80.0-96.0); NEUTROPHILS % 75.1 % (36.0-66.0); PLATELET COUNT, AUTOMATED 226 10^3/uL (150-450); RED BLOOD COUNT 4.62 10^6/uL (4.30-6.10)
[2022-05-20 17:35] LABS: ERYTHROCYTE SEDIMENTATION RATE 27 mm/hr (0-20)
[2022-05-20 17:37] LABS: ALT/SGPT 35 U/L (7.0-40); AST/SGOT 37 U/L (<34); BLOOD UREA NITROGEN 27 MG/DL (9-23); CREATININE FOR GFR 1.03 MG/DL (0.70-1.30); GLOMERULAR FILTRATION RATE > 60.0 (>49)
[2022-05-20 17:38] LABS: C REACTIVE PROTEIN QUANTITATIV < 0.40 MG/DL (<1.0)
== END ==
LOC: M WUC 13:58
PROVIDERS: ATTEND Nurse Practitioner
DX: M06.09 Rheumatoid arthritis without rheumatoid factor, multiple sites (principal); Z79.899 Other long term (current) drug therapy

== ENCOUNTER → 2022-05-20 | Outpatient (CLI) | payer OTHER ==
[2022-05-20 18:34] LABS: INR 2.49; PROTHROMBIN TIME 27.3 SECONDS (12.5-14.5)
== END ==
LOC: M WUC 14:01
PROVIDERS: ATTEND Nurse Practitioner Family
DX: I48.91 Unspecified atrial fibrillation (principal)

== ENCOUNTER → 2022-06-23 | Outpatient (CLI) | payer OTHER ==
[2022-06-23 17:32] LABS: INR 2.34
== END ==
LOC: M WUC 14:42
PROVIDERS: ATTEND Nurse Practitioner Family
DX: I48.91 Unspecified atrial fibrillation (principal)

== ENCOUNTER → 2022-07-23 | Outpatient (REF) | payer OTHER ==
[2022-07-23 17:14] LABS: INR 2.56; PROTHROMBIN TIME 27.9 SECONDS (12.5-14.5)
== END ==
LOC: M LABWUC 16:13
PROVIDERS: ATTEND Nurse Practitioner Family
DX: I48.91 Unspecified atrial fibrillation (principal)

== ENCOUNTER → 2022-11-18 | Outpatient (REF) | payer OTHER ==
[2022-11-18 16:48] LABS: CHOLESTEROL RISK RATIO 3.2 (<5); HDL CHOLESTEROL 43.4 MG/DL (>40); HEMATOCRIT 30.4 % (42.0-52.0); HEMOGLOBIN 9.1 g/dl (13.5-17.5); LDL CHOLESTEROL 80.6 MG/DL (<100); MEAN CORPUSCULAR HEMOGLOBIN 24.3 pg (27.0-33.0); MEAN CORPUSCULAR HGB CONC 29.9 g/dl (32.0-36.5); MEAN CORPUSCULAR VOLUME 81.1 fl (80.0-96.0); NON-HDL-C 95.6 MG/DL; PLATELET COUNT, AUTOMATED 535 10^3/uL (150-450); RED BLOOD COUNT 3.75 10^6/uL (4.30-6.10); WHITE BLOOD COUNT 11.4 10^3/uL (4.0-10.0)
== END ==
LOC: M WUC 16:16
PROVIDERS: ATTEND Nurse Practitioner Family
DX: I48.11 Longstanding persistent atrial fibrillation (principal); E78.49 Other hyperlipidemia; Z79.899 Other long term (current) drug therapy

== ENCOUNTER → 2023-06-03 | Outpatient (CLI) | payer OTHER ==
[2023-06-03 18:55] LABS: BASO % 0.4 % (0.0-1.0); EOS # 0.1 10^3/uL (0.0-0.5); EOS % 1.2 % (0.0-3.0); HEMATOCRIT 35.8 % (42.0-52.0); HEMOGLOBIN 11.4 g/dl (13.5-17.5); LYMPH # 0.7 10^3/uL (1.5-5.0); LYMPH % 6.6 % (24.0-44.0); MEAN CORPUSCULAR HEMOGLOBIN 27.7 pg (27.0-33.0); MEAN CORPUSCULAR HGB CONC 31.8 g/dl (32.0-36.5); MEAN CORPUSCULAR VOLUME 87.1 fl (80.0-96.0); MONO # 0.7 10^3/uL (0.0-0.8); MONO % 6.6 % (2.0-8.0); NEUTROPHILS # 9.1 10^3/uL (1.5-8.5); NEUTROPHILS % 84.6 % (36.0-66.0); PLATELET COUNT, AUTOMATED 432 10^3/uL (150-450); RED BLOOD COUNT 4.11 10^6/uL (4.30-6.10); WHITE BLOOD COUNT 10.8 10^3/uL (4.0-10.0)
[2023-06-03 19:25] LABS: ALBUMIN 3.6 G/DL (3.2-5.2); ALKALINE PHOSPHATASE 185 U/L (46-116); ALT/SGPT 41 U/L (7.0-40); AST/SGOT 37 U/L (<34); BILIRUBIN,TOTAL 0.6 MG/DL (0.3-1.2); BLOOD UREA NITROGEN 27 MG/DL (9-23); CARBON DIOXIDE LEVEL 32 MMOL/L (20-31); CHLORIDE LEVEL 97 MMOL/L (98-107); CHOLESTEROL LEVEL 160 MG/DL (<200); CREATININE FOR GFR 1.13 MG/DL (0.70-1.30); GLOMERULAR FILTRATION RATE > 60.0 (>49); GLUCOSE, FASTING 104 MG/DL (74-106); HDL CHOLESTEROL 45.7 MG/DL (>40); LDL CHOLESTEROL 99.3 MG/DL (<100); NON-HDL-C 114.3 MG/DL; POTASSIUM SERUM 4.4 MMOL/L (3.5-5.1); SODIUM LEVEL 136 MMOL/L (136-145); TOTAL PROTEIN 7.6 G/DL (5.7-8.2); TRIGLYCERIDES LEVEL 75 MG/DL (<150)
== END ==
LOC: M WUC 15:41
PROVIDERS: ATTEND Nurse Practitioner Family
DX: E78.5 Hyperlipidemia, unspecified (principal); I10 Essential (primary) hypertension

== ENCOUNTER → 2023-06-03 | Outpatient (CLI) | payer OTHER ==
[2023-06-03 18:55] LABS: BASO # 0.1 10^3/uL (0.0-0.2); BASO % 0.5 % (0.0-1.0); EOS # 0.2 10^3/uL (0.0-0.5); EOS % 1.5 % (0.0-3.0); HEMATOCRIT 35.8 % (42.0-52.0); HEMOGLOBIN 11.3 g/dl (13.5-17.5); LYMPH # 0.7 10^3/uL (1.5-5.0); LYMPH % 6.9 % (24.0-44.0); MEAN CORPUSCULAR HGB CONC 31.6 g/dl (32.0-36.5); MEAN CORPUSCULAR VOLUME 88.6 fl (80.0-96.0); MONO # 0.7 10^3/uL (0.0-0.8); MONO % 6.7 % (2.0-8.0); NEUTROPHILS % 84.1 % (36.0-66.0); PLATELET COUNT, AUTOMATED 420 10^3/uL (150-450); RED BLOOD COUNT 4.04 10^6/uL (4.30-6.10); WHITE BLOOD COUNT 10.7 10^3/uL (4.0-10.0)
[2023-06-03 19:00] LABS: ERYTHROCYTE SEDIMENTATION RATE 115 mm/hr (0-20)
[2023-06-03 19:24] LABS: ALT/SGPT 40 U/L (7.0-40); AST/SGOT 34 U/L (<34); BLOOD UREA NITROGEN 25 MG/DL (9-23); CREATININE FOR GFR 1.16 MG/DL (0.70-1.30); GLOMERULAR FILTRATION RATE > 60.0 (>49)
== END ==
LOC: M WUC 15:38
PROVIDERS: ATTEND Nurse Practitioner Family
DX: Z79.899 Other long term (current) drug therapy (principal); E78.5 Hyperlipidemia, unspecified; I10 Essential (primary) hypertension

== ENCOUNTER → 2023-09-15 | Outpatient (CLI) | payer OTHER ==
[2023-09-15 18:12] LABS: BASO % 0.3 % (0.0-1.0); EOS # 0.2 10^3/uL (0.0-0.5); EOS % 1.8 % (0.0-3.0); HEMATOCRIT 35.9 % (42.0-52.0); HEMOGLOBIN 11.2 g/dl (13.5-17.5); LYMPH # 0.7 10^3/uL (1.5-5.0); LYMPH % 7.7 % (24.0-44.0); MEAN CORPUSCULAR HEMOGLOBIN 28.6 pg (27.0-33.0); MEAN CORPUSCULAR HGB CONC 31.2 g/dl (32.0-36.5); MEAN CORPUSCULAR VOLUME 91.8 fl (80.0-96.0); MONO # 0.8 10^3/uL (0.0-0.8); MONO % 9.7 % (2.0-8.0); NEUTROPHILS # 6.9 10^3/uL (1.5-8.5); NEUTROPHILS % 80.2 % (36.0-66.0); PLATELET COUNT, AUTOMATED 296 10^3/uL (150-450); RED BLOOD COUNT 3.91 10^6/uL (4.30-6.10); WHITE BLOOD COUNT 8.7 10^3/uL (4.0-10.0)
[2023-09-15 18:38] LABS: ALT/SGPT 49 U/L (7.0-40); AST/SGOT 33 U/L (<34); BLOOD UREA NITROGEN 23 MG/DL (9-23); CREATININE FOR GFR 0.84 MG/DL (0.70-1.30); GLOMERULAR FILTRATION RATE > 60.0 (>49)
[2023-09-15 18:48] LABS: ERYTHROCYTE SEDIMENTATION RATE 52 mm/hr (0-20)
== END ==
LOC: M WUC 14:57
PROVIDERS: ATTEND Nurse Practitioner
DX: Z79.899 Other long term (current) drug therapy (principal); I10 Essential (primary) hypertension; E78.2 Mixed hyperlipidemia

== ENCOUNTER → 2023-09-15 | Outpatient (CLI) | payer OTHER ==
[2023-09-15 18:07] LABS: BASO % 0.5 % (0.0-1.0); EOS # 0.2 10^3/uL (0.0-0.5); EOS % 1.8 % (0.0-3.0); HEMATOCRIT 36.1 % (42.0-52.0); HEMOGLOBIN 11.1 g/dl (13.5-17.5); LYMPH # 0.6 10^3/uL (1.5-5.0); LYMPH % 7.3 % (24.0-44.0); MEAN CORPUSCULAR HEMOGLOBIN 28.3 pg (27.0-33.0); MEAN CORPUSCULAR HGB CONC 30.7 g/dl (32.0-36.5); MEAN CORPUSCULAR VOLUME 92.1 fl (80.0-96.0); MONO # 0.8 10^3/uL (0.0-0.8); MONO % 9.6 % (2.0-8.0); NEUTROPHILS % 80.6 % (36.0-66.0); PLATELET COUNT, AUTOMATED 312 10^3/uL (150-450); RED BLOOD COUNT 3.92 10^6/uL (4.30-6.10); WHITE BLOOD COUNT 8.7 10^3/uL (4.0-10.0)
[2023-09-15 18:39] LABS: ALBUMIN 3.7 G/DL (3.2-5.2); ALKALINE PHOSPHATASE 152 U/L (46-116); ALT/SGPT 53 U/L (7.0-40); AST/SGOT 32 U/L (<34); BILIRUBIN,TOTAL 0.6 MG/DL (0.3-1.2); BLOOD UREA NITROGEN 24 MG/DL (9-23); CALCIUM LEVEL 8.8 MG/DL (8.3-10.6); CARBON DIOXIDE LEVEL 30 MMOL/L (20-31); CHLORIDE LEVEL 105 MMOL/L (98-107); CHOLESTEROL LEVEL 163 MG/DL (<200); CHOLESTEROL RISK RATIO 2.88 (<5); CREATININE FOR GFR 0.82 MG/DL (0.70-1.30); GLOMERULAR FILTRATION RATE > 60.0 (>49); GLUCOSE, FASTING 85 MG/DL (74-106); HDL CHOLESTEROL 56.5 MG/DL (>40); LDL CHOLESTEROL 97.1 MG/DL (<100); NON-HDL-C 106.5 MG/DL; POTASSIUM SERUM 4.9 MMOL/L (3.5-5.1); SODIUM LEVEL 136 MMOL/L (136-145); TOTAL PROTEIN 7.2 G/DL (5.7-8.2); TRIGLYCERIDES LEVEL 47 MG/DL (<150)
== END ==
LOC: M WUC 15:02
PROVIDERS: ATTEND Nurse Practitioner Family
DX: I10 Essential (primary) hypertension (principal); E78.2 Mixed hyperlipidemia

== ENCOUNTER → 2024-06-22 | Outpatient (REF) | payer OTHER ==
[2024-06-22 18:02] LABS: HEMATOCRIT 38.3 % (42.0-52.0); HEMOGLOBIN 11.8 g/dl (13.5-17.5); MEAN CORPUSCULAR HEMOGLOBIN 29.6 pg (27.0-33.0); MEAN CORPUSCULAR HGB CONC 30.8 g/dl (32.0-36.5); PLATELET COUNT, AUTOMATED 261 10^3/uL (150-450); RED BLOOD COUNT 3.99 10^6/uL (4.30-6.10); WHITE BLOOD COUNT 6.5 10^3/uL (4.0-10.0)
== END ==
LOC: M LABWUC 17:25
PROVIDERS: ATTEND Internal Medicine Cardiovascular Disease
DX: I48.20 Chronic atrial fibrillation, unspecified (principal); Z79.899 Other long term (current) drug therapy